=== PATIENT | male | born 1995 | race Caucasian/White ===

== ENCOUNTER 2017-05-22 18:33 | Emergency (ER) | payer BC ==
[~2017-05-22] VITALS: Ht 167.6 cm; Wt 61.2 kg
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
[~2017-05-22 18:33] MED LIST: IBUPROFEN PO; TAMIFLU75 MG PO
== END 2017-05-22 21:54 | disposition home or self-care (01) ==
LOC: CFTX 18:33 → CED 18:33 → CFTX 21:03
DX: S09.90XA Unspecified injury of head, initial encounter (principal); S16.1XXA Strain of muscle, fascia and tendon at neck level, initial encounter; F17.200 Nicotine dependence, unspecified, uncomplicated; Z79.899 Other long term (current) drug therapy; V49.9XXA Car occupant (driver) (passenger) injured in unspecified traffic accident, initial encounter; Y93.89 Activity, other specified; Y92.410 Unspecified street and highway as the place of occurrence of the external cause
CPT/HCPCS: 70450; 72040; 99284